=== PATIENT | male | born 1980 | race Caucasian/White ===

== ENCOUNTER 2017-08-20 19:33 | Emergency (ER) | payer MEDICAID ==
[~2017-08-20] VITALS: Ht 170.2 cm; Wt 90.9 kg
[2017-08-20] MEDS ORDERED: HYDROCODONE/ACETAMINOPHEN 5-325 MG TABLET PO ONE (20:15)
[2017-08-20 21:49] VITALS: BP 135/80
== END 2017-08-20 21:55 | disposition home or self-care (01) ==
LOC: EMS 19:35
DX: S29.011A Strain of muscle and tendon of front wall of thorax, initial encounter (principal); S46.912A Strain of unspecified muscle, fascia and tendon at shoulder and upper arm level, left arm, initial encounter; F12.10 Cannabis abuse, uncomplicated; V43.52XA Car driver injured in collision with other type car in traffic accident, initial encounter; Y93.89 Activity, other specified; Y92.488 Other paved roadways as the place of occurrence of the external cause; Y99.8 Other external cause status
CPT/HCPCS: 99284

== ENCOUNTER 2017-08-22 15:51 | Emergency (ER) | payer MEDICAID ==
[~2017-08-22] VITALS: Ht 170.2 cm; Wt 90.9 kg
[2017-08-22] MEDS ORDERED: HYDR-309 PO (16:15)
[2017-08-22] MEDS ORDERED: IBUP-1506 PO (16:15)
[2017-08-22 17:34] LABS: BASOPHILS % (AUTO) 0.6 % (0.0-2.0); EOSINOPHILS % (AUTO) 2.6 % (1.0-6.0); HEMATOCRIT 41.8 % (41-53); HEMOGLOBIN 14.6 g/dL (13.5-17.5); LYMPHOCYTES # (AUTO) 1.9 K/uL (1.0-4.8); LYMPHOCYTES % (AUTO) 21.5 % (22.0-44.0); MEAN CORPUSCULAR HEMOGLOBIN 30.7 pg (26.0-34.0); MEAN CORPUSCULAR VOLUME 88 fL (80-100); MONOCYTES # (AUTO) 0.7 K/uL (0.1-1.0); MONOCYTES % (AUTO) 8.5 % (2.0-9.0); NEUTROPHILS # (AUTO) 5.8 K/uL (1.8-7.7); NEUTROPHILS % (AUTO) 66.8 % (40.0-70.0); PLATELET COUNT (AUTO) 334 K/uL (150-450); RED BLOOD CELL COUNT(AUTO) 4.76 MIL/uL (4.50-5.90); RED CELL DISTRIBUTION WIDTH 13.2 % (11.5-14.5)
[2017-08-22 17:46] LABS: ANION GAP 10 mmol/L (8-16); CALCIUM, TOTAL 9.4 mg/dL (8.8-10.5); CARBON DIOXIDE 25 mmol/L (22-29); CHLORIDE 103 mmol/L (98-107); CREATININE 0.85 mg/dL (0.60-1.30); GLOMERULAR FILTR. RATE CALC > 60 mL/min (>60); GLUCOSE,RANDOM 92 mg/dL (70-110); POTASSIUM 4.1 mmol/L (3.5-5.1); SODIUM SERUM 138 mmol/L (136-145); UREA NITROGEN, BLOOD 11 mg/dL (7-18)
[2017-08-22 17:51] LABS: ALANINE AMINOTRANSFERASE 43 U/L (12-78); ALBUMIN 4.4 g/dL (3.4-5.0); ALKALINE PHOSPHATASE 69 U/L (46-116); ASPARTATE AMINOTRANSFERASE 19 U/L (15-37); TOTAL PROTEIN, SERUM 8.1 g/dL (6.4-8.2)
[2017-08-22 18:01] VITALS: BP 133/81
== END 2017-08-22 18:51 | disposition home or self-care (01) ==
LOC: EMS 15:51
DX: S20.212A Contusion of left front wall of thorax, initial encounter (principal); S20.211A Contusion of right front wall of thorax, initial encounter; F12.90 Cannabis use, unspecified, uncomplicated; V49.9XXA Car occupant (driver) (passenger) injured in unspecified traffic accident, initial encounter; Y93.89 Activity, other specified; Y92.89 Other specified places as the place of occurrence of the external cause; Y99.8 Other external cause status
CPT/HCPCS: 93005; 99285